=== PATIENT | female | born 1930 | race Caucasian/White ===

== ENCOUNTER 2016-11-15 12:52 | Emergency (ER) | payer MEDICARE ==
[~2016-11-15 12:52] MED LIST: AMARYL2 MG PO; CEFDINIR300 MG PO; COLACE100 MG PO; GLUCOPHAGE XR500 MG PO; GLUCOPHAGE500 MG PO; LISINOPRIL-HCT1 EACH PO; MILK OF MA400 MG/5 M PO; MLYLANTA/MAALOX30 ML PO; NORCO 5-325 TA1 EACH PO; PROZAC20 MG PO; TYLENOL325 M1 PO; TYLENOL650 MG PO; VITAMIN B-122000 MC1 PO
[2016-11-15 16:07] LABS: BASOPHIL 0.3 % (0-2); EOSINOPHIL 3.5 % (0-7); HCT 31.5 % (37.0-47.0); HGB 10.7 g/dl (12.5-16.0); LYMPHOCYTE 16.2 % (15-48); MCH 30.9 pg (25.0-31.0); MONOCYTE 10.8 % (0-12); MPV 9.3 fL (6.0-9.5); NEUTROPHIL 69.2 % (41-80); PLT 210 K/uL (150-400); RBC 3.46 M/uL (4.20-5.40); WBC 10.8 K/uL (4.0-10.5)
[2016-11-15 16:25] LABS: ALBUMIN 3.3 g/dL (3.4-4.8); BILIRUBIN - TOTAL 0.2 mg/dL (0.1-1.0); CREATININE 1.5 mg/dL (0.5-1.0); POTASSIUM 4.7 mmol/L (3.5-5.1); TOTAL PROTEIN 7.3 g/dL (6.4-8.3)
[2016-11-15 20:40] LABS: BILIRUBIN NEGATIVE (NEGATIVE); BLOOD NEGATIVE Ery/uL (NEGATIVE); CLARITY CLEAR (CLEAR); COLOR YELLOW (YELLOW); GLUCOSE (U) NORMAL (NORMAL); KETONE (U) NEGATIVE (NEGATIVE); LEUKOCYTES NEGATIVE Leu/uL (NEGATIVE); NITRITE NEGATIVE (NEGATIVE); PROTEIN NEGATIVE (NEGATIVE); UROBILINOGEN 0.2 mg/dL (0.2-1.0)
== END 2016-11-15 22:49 | disposition home or self-care (01) ==
LOC: FER 12:52
PROVIDERS: Emergency Medicine
DX: E87.1 Hypo-osmolality and hyponatremia (principal); E86.0 Dehydration; E11.9 Type 2 diabetes mellitus without complications; J44.9 Chronic obstructive pulmonary disease, unspecified; I11.9 Hypertensive heart disease without heart failure; D64.9 Anemia, unspecified; E78.5 Hyperlipidemia, unspecified
CPT/HCPCS: 36415; 71020; 80053; 81003; 85025